=== PATIENT | female | born 1940 | race Caucasian/White ===

== ENCOUNTER 2017-05-06 14:28 | Outpatient (CLI) | payer MEDICARE, OTHER ==
--- NOTE | 2017-05-06 16:44 | MRI Preliminary Report ---
Exam: MRI BRAIN W/O Impressions: 1. No acute or subacute ischemic change. 2. Mild to moderate generalized cortical atrophy with only trivial white matter disease as described of indeterminate significance. There is mild midbrain atrophy. 3. Otic capsule contents, cisternal segments of the major cranial nerves are unremarkable as describe dFinn [facility] SITE ID: [id number]
--- NOTE | 2017-05-06 16:47 | MRI Report ---
EXAM: MRI BRAIN AND INTERNAL AUDITORY CANAL (IAC) EXAM DATE: 05/06/2017 03:59 PM. CLINICAL HISTORY: VERTIGO, ESSENTIAL HYPERTENSION. COMPARISON: None. TECHNIQUE: Multiplanar, multisequence T1-weighted and fluid-sensitive MRI sequences of the brain and IACs were performed. Other: None. IV Contrast: None. Findings: Relevant images are indicated (image number, series number). There is no acute or subacute ischemic change in the brain. There is no significant hemosiderin depos ition present in the brain. There is no hemorrhage, mass or midline shift. Basal cisterns, bilateral IACs, bilateral Meckel's cav es are clear. Orbital contents negative, patient status post bilateral lens surgery. Punctate old str todd present right thalamus, potentially left posterior thalamus. There is mild to moderate generalize d cortical atrophy, mild compensatory ventricular enlargement. There is trivial right superior fronta l gyrus subcortical white matter disease. Cisternal segments of the major cranial nerves are unremarkable. Bilateral otic capsule contents incl uding cochlea, vestibule, semicircular canals are unremarkable. There is empty sella. Midbrain demonstrates mild atrophy. Craniocervical junction, limited evaluation upper cervical cord negative although there is partial visualization of upper cervical spine spondyl osis. Impressions: 1. No acute or subacute ischemic change. 2. Mild to moderate generalized cortical atrophy with only trivial white matter disease as described of indeterminate significance. There is mild midbrain atrophy. 3. Otic capsule contents, cisternal segments of the major cranial nerves are unremarkable as describe d. [facility] Referring Provider Line: [phone] SITE ID: [id number]
== END 2017-05-06 14:29 | disposition home or self-care (01) ==
LOC: DI 14:28
PROVIDERS: ATTEND Family Medicine
DX: G31.9 Degenerative disease of nervous system, unspecified (principal)
CPT/HCPCS: 70551

== ENCOUNTER 2017-05-20 11:45 | Outpatient (CLI) | payer MEDICARE, OTHER ==
--- NOTE | 2017-05-23 16:03 | Mammography Report ---
DIGITAL SCREENING MAMMOGRAM: 05/20/2017 CLINICAL INDICATION: A 76-year-old, for screening. COMPARISON: 04/2016, 03/2015, 06/2008, 05/2007. TECHNIQUE: Routine CC and MLO projections were obtained of the breasts. FINDINGS: The breasts demonstrate fatty replacement bilaterally. Intramammary lymph nodes are stable . Coarse and punctate, typically benign calcifications are present. No suspicious masses, clustered m icrocalcifications, or regions of architectural distortion are identified. IMPRESSION: BENIGN FINDINGS. RECOMMENDATION: ROUTINE ANNUAL SCREENING UNLESS OTHERWISE CLINICALLY INDICATED. BIRADS CATEGORY 2-BENIGN FINDINGS. STANDARD QUALIFYING STATEMENTS 1. This examination was reviewed with the aid of Computer-Aided Detection (CAD). 2. A negative or benign imaging report should not delay biopsy if clinically suspicious findings are present. Consider surgical consultation if warranted. More than 5% of cancers are not identified by i maging. 3. Dense breasts may obscure an underlying neoplasm. JOB #: [id number] EXT JOB #:[id number]
== END 2017-05-20 11:46 | disposition home or self-care (01) ==
LOC: DI.N 11:45
PROVIDERS: ATTEND Family Medicine
DX: Z12.31 Encounter for screening mammogram for malignant neoplasm of breast (principal)
CPT/HCPCS: 77067

== ENCOUNTER 2018-01-17 11:37 | Outpatient (CLI) | payer MEDICARE, OTHER ==
[2018-01-17 19:13] LABS: HB2 TOTAL 16.1 g/dL; HEMOGLOBIN A1C 0.58 g/dL; HEMOGLOBIN A1C % 5.4 % (4.6-6.2)
[2018-01-17 19:27] LABS: THYROID STIMULATING HORMONE 1.99 uIU/mL (0.34-5.60)
[2018-01-19 15:17] LABS: ALBUMIN 3.9 g/dL (3.8-4.8); ALPHA 1 GLOBULIN 0.3 g/dL (0.2-0.3); ALPHA 2 GLOBULIN 0.7 g/dL (0.5-0.9); BETA 1 GLOBULIN 0.4 g/dL (0.4-0.6); BETA 2 GLOBULIN 0.2 g/dL (0.2-0.5)
== END 2018-01-17 11:38 | disposition home or self-care (01) ==
LOC: LAB.WCP 11:37
PROVIDERS: ATTEND Family Medicine
DX: R73.01 Impaired fasting glucose (principal); R20.9 Unspecified disturbances of skin sensation
CPT/HCPCS: 36415; 82607; 83036; 84155; 84165; 84443; 86140

== ENCOUNTER 2018-01-31 15:25 | Outpatient (CLI) | payer MEDICARE, OTHER ==
--- NOTE | 2018-02-01 14:49 | MRI Report ---
Procedure Date: 01/31/2018 Accession Number: [id number] / [id number] Procedure: MRI - Lumbar Spine W/O CPT Code: FULL RESULT: EXAM: MRI LUMBAR SPINE WITHOUT CONTRAST EXAM DATE: 01/31/2018 04:20 PM. CLINICAL HISTORY: Left lower extremity paresthesias, radiculopathy. COMPARISON: Prior plain film lumbar spine 02/25/2016. TECHNIQUE: Multiplanar, multisequence T1-weighted and fluid-sensitive sequences of the lumbar spine from T12 to S1 without contrast. Other: None. Findings: Relevant images are indicated (image number, series number). There are 5 qto-qtt-qfkoail lumbar vertebra. Conus terminates at the L1-L2 level. There is no abnormal lumbar cord signal. There are no suspicious marrow lesions. Advanced multilevel lower thoracic, lumbar spine spondylosis present. There is no lumbar paraspinal mass or collection. Marked posterior facet multilevel bony hypertrophic changes are present. Mild degenerative changes bilateral sacroiliac joints. Partly visualized bilateral kidneys demonstrate no obstructive uropathy. 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 Partly seen T9-T10 through T10-T11 demonstrates mild/moderate disk desiccation only. T11-T12: Moderate/marked degenerative change, prominent posterior broad-based disk protrusion, mild canal stenosis with minimal bilateral neural foramina narrowing. T12-L1: Marked disk degenerative change, small posterior broad-based disk osteophyte complex, slight grade 1 retrolisthesis. No significant canal stenosis. Moderate bilateral neural foramina narrowing. L1-L2: Marked disk degenerative change him a right posterior paracentral small disk extrusion extends below the superior endplate of L2. No significant canal stenosis. Moderate/marked posterior facet degenerative changes with [id number] bilateral neural foramina narrowing right than left. L2-L3: Marked disk degenerative change, moderate Modic type I endplate change. Posterior broad-based disk osteophyte extrusion, marked/severe canal stenosis. Marked posterior facet degenerative changes with moderate left, marked right neural foramina narrowing with likely contact right L2, bilateral traversing L3 nerve roots. L3-L4: Marked disk degenerative change, grade 1 anterolisthesis, posterior broad-based disk osteophyte extrusion, severe canal stenosis, marked posterior facet degenerative change with marked left, moderate to marked right neural foramina narrowing likely contact bilateral L3 and traversing bilateral L4 nerve roots. L4-L5: Moderate/marked disk degenerative change, moderate Modic type I endplate change. L5 right superior endplate Schmorl's node present with surrounding edema consistent with focal microfracturing. There is marked canal stenosis. There is moderate to marked bilateral neural foramina narrowing right greater than left. There is likely contact right L4 nerve root. L5-S1: Moderate/marked disk degenerative change, no canal stenosis. Moderate/marked posterior facet degenerative change with moderate to marked bilateral neural foraminal narrowing right slightly greater than left. Potential contact bilateral L5 nerve roots. Trace Modic type I endplate change. Remaining upper sacral canal negative with few scattered Tarlov cysts present. Impressions: 1. Advanced multilevel lower thoracic, lumbar spine spondylosis, 5 [id number]-kid-spycxmu lumbar vertebra are present. No abnormal lumbar cord signal or suspicious marrow lesion. Pertinent degenerative levels below. 2. L2-L3: Moderate Modic type I endplate change likely locally symptomatic. Marked/severe canal stenosis, moderate to marked degenerative bilateral neural foramina narrowing may contribute a right L2, bilateral traversing L3 radiculopathy. 3. L3-L4: Severe degenerative canal stenosis. Moderate/marked degenerative lateral neural foramina narrowing may contribute a bilateral L3, traversing bilateral L4 radiculopathy. 4. L4-L5: Moderate Modic type I endplate change likely locally symptomatic. Marked degenerative canal stenosis. Moderate to marked degenerative bilateral neural foramina narrowing may contribute a right L4 radiculopathy. Likely L5 right superior endplate microfracturing present consistent with active Schmorl's node development. 5. L5-S1: Moderate to marked degenerative bilateral neural foramina narrowing may contribute a bilateral L5 radiculopathy. Trace Modic type I endplate change. 6. Milder or no significant degenerative changes of the remaining lower thoracic, lumbar spine levels as detailed. Comment: The following findings are so common in adults without low back pain that while we report their presence, they must be interpreted with caution and in the context of the clinical situation. (Reference Rebecca et al, Spine 2001) Prevalence of findings in patients without low back pain: Disk degeneration (any evidence): 92% Disk desiccation/T2 signal loss: 83% Disk height loss: 56% Disk bulge: 64% Disk protrusion: 32% Annular tear/high intensity zone: 38% [facility]
== END 2018-01-31 15:26 | disposition home or self-care (01) ==
LOC: DI 15:25
PROVIDERS: ATTEND Family Medicine
DX: M54.16 Radiculopathy, lumbar region (principal); R20.2 Paresthesia of skin; M47.896 Other spondylosis, lumbar region
CPT/HCPCS: 72148

== ENCOUNTER 2018-05-22 11:50 | Outpatient (CLI) | payer MEDICARE, OTHER ==
--- NOTE | 2018-05-23 09:05 | Mammography Report ---
Reason: SCREENING MAMMO Procedure Date: 05/22/2018 Accession Number: [id number] / [id number] Procedure: MGN - Screening Mammo Dig Bilat CPT Code: FULL RESULT: EXAM: Screening Mammo Dig Bilat DATE: 05/22/2018 12:08 PM CLINICAL HISTORY: 77-year-old female with history of early menses for screening mammogram. TECHNIQUE: Bilateral CC and MLO views were obtained. COMPARISON: 05/20/2017, 05/18/2016, 04/01/2015, 07/03/2008. FINDINGS: The breasts demonstrate scattered fibroglandular densities bilaterally. Coarse typically benign calcifications are again seen bilaterally. No suspicious masses, clustered microcalcifications, or regions of architectural distortion are identified. IMPRESSION: Benign findings RECOMMENDATION: Routine annual screening unless otherwise clinically indicated. BIRADS CATEGORY 2: Benign findings STANDARD QUALIFYING STATEMENTS: 1. This examination was reviewed with the aid of Computer-Aided Detection (CAD). 2. A negative or benign imaging report should not delay biopsy if clinically suspicious findings are present. Consider surgical consultation if warrented. More than 5% of cancers are not identified by imaging. 3. Dense breasts may obscure an underlying neoplasm. 4. This examination was reviewed without the aid of 3D breast imaging (tomosynthesis).
== END 2018-05-22 11:51 | disposition home or self-care (01) ==
LOC: DI.N 11:50
DX: Z12.31 Encounter for screening mammogram for malignant neoplasm of breast (principal)
CPT/HCPCS: 77067

== ENCOUNTER 2018-11-22 08:00 | Outpatient (CLI) | payer MEDICARE, OTHER ==
[2018-11-22 12:50] LABS: BASOPHILS # (AUTO) 0.1 10^3/uL (0.0-0.1); BASOPHILS % (AUTO) 1.5 %; EOSINOPHILS # (AUTO) 0.4 10^3/uL (0.0-0.7); EOSINOPHILS % (AUTO) 6.3 %; HGB - HEMOGLOBIN 13.6 g/dL (12.0-16.0); LYMPHOCYTES # (AUTO) 0.6 10^3/uL (1.5-3.5); LYMPHOCYTES % (AUTO) 8.4 %; MEAN CORPUSCULAR HEMOGLOBIN 30.3 pg (27.0-31.0); MEAN CORPUSCULAR HGB CONC 33.7 g/dL (32.0-36.0); MEAN CORPUSCULAR VOLUME 89.7 fL (81.0-99.0); MEAN PLATELET VOLUME 6.6 fL (7.9-10.8); MONOCYTES # (AUTO) 0.5 10^3/uL (0.0-1.0); NEUTROPHILS # (AUTO) 5.1 10^3/uL (1.5-6.6); NEUTROPHILS % (AUTO) 75.8 %; PLT - PLATELET COUNT 299 10^3/uL (130-450); RED BLOOD COUNT 4.51 10^6/uL (4.20-5.40); RED CELL DISTRIBUTION WIDTH 13.6 % (12.0-15.0); WHITE BLOOD COUNT 6.7 x10^3/uL (4.8-10.8)
[2018-11-22 14:55] LABS: HB2 TOTAL 14.4 g/dL; HEMOGLOBIN A1C 0.52 g/dL; HEMOGLOBIN A1C % 5.5 % (4.6-6.2)
[2018-11-22 15:06] LABS: ALBUMIN 3.5 g/dL (3.2-5.5); ALBUMIN/GLOBULIN RATIO 1.1 (1.0-2.2); ALKALINE PHOSPHATASE 54 IU/L (42-121); ALT ALANINE AMINOTRANSFERASE 16 IU/L (10-60); AST ASPARTATE AMINOTRANSFERASE 19 IU/L (10-42); BUN - BLOOD UREA NITROGEN 19 mg/dL (6-20); CALCIUM 8.9 mg/dL (8.5-10.3); CARBON DIOXIDE - CO2 28 mmol/L (21-32); CHLORIDE 97 mmol/L (101-111); CHOL/HDL RATIO 2.7 (<4.4); CHOLESTEROL 141 mg/dL; CREATININE 0.7 mg/dL (0.4-1.0); GFR - MDRD 81 (>89); GLUCOSE 105 mg/dL (70-100); HDL CHOLESTEROL 52 mg/dL; LDL CHOLESTEROL,CALCULATED 77 mg/dL; LDL/HDL RATIO 1.5 (<4.4); SODIUM 138 mmol/L (135-145); TOTAL PROTEIN 6.7 g/dL (6.7-8.2); VLDL CHOLESTEROL 12 mg/dL
== END 2018-11-22 23:59 | disposition home or self-care (01) ==
LOC: LAB.N 08:00
PROVIDERS: ATTEND Family Medicine
DX: I10 Essential (primary) hypertension (principal); R73.9 Hyperglycemia, unspecified; E78.5 Hyperlipidemia, unspecified
CPT/HCPCS: 36415; 80053; 80061; 83036; 83721; 84443; 85025

== ENCOUNTER 2019-02-26 12:48 | Outpatient (CLI) | payer MEDICARE, OTHER ==
--- NOTE | 2019-02-26 15:00 | CT Report ---
Reason: ANOSMIA, CHRONIC SINUSITIS Procedure Date: 02/26/2019 Accession Number: [id number] / [id number] Procedure: CT - Sinuses CPT Code: FULL RESULT: EXAM: CT SINUS EXAM DATE: 02/26/2019 12:59 PM. HISTORY: Anosmia, chronic sinusitis. COMPARISONS: None. TECHNIQUE: Routine multi-axial CT imaging performed through the sinuses. Iodinated IV contrast: None. Reconstructions: Multiplanar reformats. In accordance with CT protocol optimization, one or more of the following dose reduction techniques were utilized for this exam: automated exposure control, adjustment of mA and/or KV based on patient size, or use of iterative reconstructive technique. FINDINGS: RIGHT Frontal: Normal. Ethmoid: Normal. Maxillary: Normal. Sphenoid: Normal. Drainage Pathways: The frontal recess, ostiomeatal complex and sphenoethmoidal recess are patent and normal. LEFT Frontal: Normal. Ethmoid: Normal. Maxillary: Normal. Sphenoid: Normal. Drainage Pathways: The frontal recess, ostiomeatal complex and sphenoethmoidal recess are patent and normal. Nasal Cavity: Normal. No mass or significant anatomic abnormality evident. Osseous Structures: Unremarkable. Moderate degenerative change is seen in the TMJ bilaterally. Orbits: Unremarkable. Other: Partial opacification is seen scattered throughout the inferior left mastoid air cells. The partially visualized nasopharynx and infratemporal fossa are unremarkable. IMPRESSION: 1. Normal sinus CT. No sinusitis. 2. Note is made of partial opacification involving inferior left mastoid air cells. [facility]
== END 2019-02-26 12:49 | disposition home or self-care (01) ==
LOC: DI 12:48
PROVIDERS: ATTEND Family Medicine
DX: J32.9 Chronic sinusitis, unspecified (principal); R43.0 Anosmia
CPT/HCPCS: 70486

== ENCOUNTER 2019-06-07 10:44 | Outpatient (CLI) | payer MEDICARE, OTHER ==
--- NOTE | 2019-06-08 11:43 | Mammography Report ---
Reason: ROUTINE MAMMO Procedure Date: 06/07/2019 Accession Number: [id number] / [id number] Procedure: ENA - Screening Mammo w/Paul CPT Code: Final Report FULL RESULT: EXAM: Screening Mammo w/Paul DATE: 06/07/2019 11:11 AM CLINICAL HISTORY: Routine screening. No reported personal or family history of breast cancer. TECHNIQUE: (B) - Bilateral CC and MLO views were obtained. COMPARISON: 05/22/2018 through 04/01/2015. PARENCHYMAL PATTERN: (F) - The breasts demonstrate diffuse fatty replacement bilaterally. FINDINGS: Bilateral breasts: There are no suspicious masses, calcifications, or areas of distortion. IMPRESSION: Negative examination. BI-RADS category 1. RECOMMENDATION: (ANNUAL) - Recommend routine annual screening mammography. BI-RADS CATEGORY: STANDARD QUALIFYING STATEMENTS: 1. This examination was not reviewed with the aid of Computer-Aided Detection (CAD). 2. A negative or benign imaging report should not preclude biopsy if clinically suspicious findings are present. 3. Dense breasts may obscure an underlying neoplasm. 4. This examination was reviewed with the aid of 3D breast imaging (tomosynthesis).
== END 2019-06-07 10:45 | disposition home or self-care (01) ==
LOC: DI 10:44
DX: Z12.31 Encounter for screening mammogram for malignant neoplasm of breast (principal)
CPT/HCPCS: 77063; 77067

== ENCOUNTER 2019-12-31 09:21 | Outpatient (CLI) | payer MEDICARE, OTHER ==
[2019-12-31 12:12] LABS: BASOPHILS # (AUTO) 0.1 10^3/uL (0.0-0.1); BASOPHILS % (AUTO) 0.9 %; EOSINOPHILS # (AUTO) 0.3 10^3/uL (0.0-0.7); EOSINOPHILS % (AUTO) 3.4 %; HGB - HEMOGLOBIN 14.4 g/dL (12.0-16.0); LYMPHOCYTES # (AUTO) 0.8 10^3/uL (1.5-3.5); LYMPHOCYTES % (AUTO) 8.8 %; MEAN CORPUSCULAR HEMOGLOBIN 31.2 pg (27.0-31.0); MEAN CORPUSCULAR HGB CONC 34.6 g/dL (32.0-36.0); MEAN CORPUSCULAR VOLUME 90.2 fL (81.0-99.0); MEAN PLATELET VOLUME 8.8 fL (7.9-10.8); MONOCYTES # (AUTO) 0.7 10^3/uL (0.0-1.0); NEUTROPHILS # (AUTO) 7.2 10^3/uL (1.5-6.6); PLT - PLATELET COUNT 240 10^3/uL (130-450); RED BLOOD COUNT 4.61 10^6/uL (4.20-5.40); RED CELL DISTRIBUTION WIDTH 13.2 % (12.0-15.0); WHITE BLOOD COUNT 9.2 x10^3/uL (4.8-10.8)
[2019-12-31 12:38] LABS: ALBUMIN/GLOBULIN RATIO 1.2 (1.0-2.2); ALKALINE PHOSPHATASE 46 IU/L (42-121); ALT ALANINE AMINOTRANSFERASE 16 IU/L (10-60); AST ASPARTATE AMINOTRANSFERASE 19 IU/L (10-42); BILIRUBIN,TOTAL 1.3 mg/dL (0.2-1.0); BUN - BLOOD UREA NITROGEN 14 mg/dL (6-20); CALCIUM 9.1 mg/dL (8.5-10.3); CARBON DIOXIDE - CO2 28 mmol/L (21-32); CHLORIDE 96 mmol/L (101-111); CHOL/HDL RATIO 2.1 (<4.4); CHOLESTEROL 137 mg/dL; CREATININE 0.7 mg/dL (0.4-1.0); GLUCOSE 94 mg/dL (70-100); HDL CHOLESTEROL 65 mg/dL; LDL CHOLESTEROL,CALCULATED 60 mg/dL; LDL/HDL RATIO 0.9 (<4.4); SODIUM 134 mmol/L (135-145); TOTAL PROTEIN 7.4 g/dL (6.7-8.2); VLDL CHOLESTEROL 12 mg/dL
[2019-12-31 12:46] LABS: HB2 TOTAL 15.1 g/dL; HEMOGLOBIN A1C 0.54 g/dL; HEMOGLOBIN A1C % 5.4 % (4.6-6.2)
== END 2019-12-31 23:59 | disposition home or self-care (01) ==
LOC: LAB.WCP 09:21
PROVIDERS: ATTEND Family Medicine
DX: R73.01 Impaired fasting glucose (principal); I10 Essential (primary) hypertension
CPT/HCPCS: 36415; 80053; 80061; 83036; 83721; 85025

== ENCOUNTER 2020-12-04 10:26 | Outpatient (CLI) | payer MEDICARE, OTHER ==
--- NOTE | 2020-12-04 11:30 | XRAY Report ---
PROCEDURE: Hand 3 View RT INDICATIONS: HAND JOINT PAIN, RIGHT TECHNIQUE: 3 views of the hand(s) acquired. COMPARISON: None FINDINGS: Bones: No fractures or dislocations. No suspicious bony lesions. Joint space narrowing and periart icular osteophyte formation at the scaphotrapezial, first carpometacarpal joint, first, second, and t hird metacarpophalangeal joints, as well as the interphalangeal joints of the digits, indicating oste oarthritis. This is worst in degree at the first carpal metacarpal joint. Soft tissues: No suspicious soft tissue calcifications. IMPRESSION: Multifocal osteoarthritis. No acute fracture. No osseous lesion. If symptoms and/or clinical suspicio n for pathology continue, further assessment with repeat plain films, or advanced imaging (e.g., CT, MRI, or bone scan) is recommended for further assessment. Reviewed by: Madi Kaur MD on 12/04/2020 11:29 AM PDT Approved by: Madi Kaur MD on 12/04/2020 11:29 AM PDT Station ID: [id number]
== END 2020-12-04 23:59 | disposition home or self-care (01) ==
LOC: DI.N 10:26
PROVIDERS: ATTEND Family Medicine
DX: M19.041 Primary osteoarthritis, right hand (principal); M18.11 Unilateral primary osteoarthritis of first carpometacarpal joint, right hand

== ENCOUNTER 2022-06-16 08:00 | Outpatient (CLI) | payer MEDICARE, OTHER ==
[2022-06-16 22:01] LABS: BACTERIAL VAGINOSIS DNA NEGATIVE (NEGATIVE); CANDIDA GLABRATA DNA NEGATIVE (NEGATIVE); CANDIDA GROUP DNA POSITIVE (NEGATIVE); CANDIDA KRUSEI DNA NEGATIVE (NEGATIVE); TRICHOMONAS VAGINALIS DNA NEGATIVE (NEGATIVE)
== END 2022-06-16 23:59 | disposition home or self-care (01) ==
LOC: LAB 08:00
PROVIDERS: ATTEND Physician Assistant
DX: N89.8 Other specified noninflammatory disorders of vagina (principal)
CPT/HCPCS: 81514

== ENCOUNTER 2023-10-16 17:53 | Outpatient (CLI) | payer MEDICARE | END 2023-10-16 23:59 | disposition critical access hospital (66) | LOC: EMS 17:53 | DX: S01.21XA Laceration without foreign body of nose, initial encounter (principal); S09.90XA Unspecified injury of head, initial encounter; W18.39XA Other fall on same level, initial encounter; Y93.89 Activity, other specified; Y92.000 Kitchen of unspecified non-institutional (private) residence as the place of occurrence of the external cause | CPT/HCPCS: A0425; A0429 ==

== ENCOUNTER 2023-10-16 18:05 | Emergency (ER) | payer MEDICARE ==
--- NOTE | 2023-10-16 18:55 | CT Report ---
PROCEDURE: Head WO INDICATIONS: fall, pain TECHNIQUE: Noncontrast 4.5 mm thick angled axial sections acquired from the foramen magnum to the vertex. For r adiation dose reduction, the following was used: automated exposure control, adjustment of mA and/or kV according to patient size. COMPARISON: 03/27/2020 FINDINGS: Image quality: Diagnostic CSF spaces: Basal cisterns are patent. Lateral ventricles are symmetric. Volume: Vascular calcifications. Periventricular white matter disease is commonly seen with chronic m icroangiopathy. Volume loss is present. These findings are moderate. Brain: No intracranial hemorrhage. Ferrara-white differentiation is grossly maintained. Craniofacial structures: Facial structures are separately dictated. Scalp hematoma in the frontal reg ion. No displaced fracture. Partially empty sella. IMPRESSION: No acute intracranial abnormality. Forehead scalp hematoma. Facial findings are separately dictated. Reviewed by: Dar De Leon MD on 10/16/2023 6:54 PM PDT Approved by: Dar De Leon MD on 10/16/2023 6:54 PM PDT Station ID: [id number]
--- NOTE | 2023-10-16 18:58 | CT Report ---
PROCEDURE: Cervical Spine WO INDICATIONS: fall, pain TECHNIQUE: Noncontrast 3 mm thick sections acquired from the skull base to the T4 level. Sagittal and coronal r eformats were then constructed. For radiation dose reduction, the following was used: automated exp osure control, adjustment of mA and/or kV according to patient size. COMPARISON: None FINDINGS: Image quality: Diagnostic Bones: Moderate degenerative changes. Anterolisthesis of C3 on C4, C4 on C5, and retrolisthesis of C5 on C6, likely degenerative. Trace anterolisthesis also seen of C7 on T1. There is slight reversal of the normal cervical lordosis. No acute vertebral body height loss. Soft tissues: No pathologic prevertebral soft tissue swelling. Partially seen emphysema at the lung a pices. 1.6 cm right thyroid nodule. Consider nonemergent sonographic follow-up. Subcutaneous lesion i n the left anterior lower neck, correlate with clinical clinical exam (series 2 image 49). IMPRESSION: Degenerative changes without acute fracture or traumatic subluxation. If there is high concern for fu rther derangement, consider MRI evaluation. Reviewed by: Dar De Leon MD on 10/16/2023 6:57 PM PDT Approved by: Dar De Leon MD on 10/16/2023 6:57 PM PDT Station ID: [id number]
[2023-10-16] MEDS: BUFFERED LIDOCAINE 10 ML SYRINGE SUBQ STA (19:00)
--- NOTE | 2023-10-16 19:02 | CT Report ---
PROCEDURE: Maxillofacial WO INDICATIONS: fall, pain TECHNIQUE: Noncontrast 1.5 mm thick axial images acquired from the mandible through the frontal sinuses, with co asuncion and sagittal reformatting. For radiation dose reduction, the following was used: automated ex posure control, adjustment of mA and/or kV according to patient size. 3-dimensional reconstructions w ere obtained. COMPARISON: 03/27/[address] FINDINGS: Image quality: Diagnostic Bones: No displaced fracture. Orbital webster are intact. Mandible is intact. Zygomatic arches and pter ygoid plates are intact. No skull base fracture. Sequela of dental disease. TMJ arthrosis. Possible n ondisplaced nasal fracture. Sinuses and mastoids: No significant opacification. Soft tissues: Partially seen forehead hematoma. The globes appear intact. Suspected soft tissue injur y over the bridge of the nose Brain: Separately dictated IMPRESSION: Suspected soft tissue injury over the nose, as well as forehead hematoma. Possible nondisplaced nasa l bone fracture versus old injury. No displaced fracture is seen elsewhere. Other findings as above. Reviewed by: Dra De Leon MD on 10/16/2023 7:01 PM PDT Approved by: Dar De Leon MD on 10/16/2023 7:01 PM PDT Station ID: [id number]
--- NOTE | 2023-10-16 19:54 | ED Physician Documentation ---
History of Present Illness - Stated complaint Stated Complaint: GLF - Chief complaint Chief Complaint: Laceration - History obtained from History obtained from: Patient, EMS - History of Present Illness Timing: Today Pain level max: 3 Pain level now: 3 - Additonal information Additional information: 83-year-old female states that she tripped and fell at home today landing on the ground, causing a hematoma to the forehead and a laceration to her nose. She states that she is not on any blood thinners. Tetanus is up-to-date. No loss of consciousness. Denies any injury to her shoulders, elbows, hips, knees. Brought in by EMS from home. Review of Systems Constitutional: denies: Fever, Chills GI: denies: Vomiting Musculoskeletal: denies: Neck pain, Back pain Neurologic: denies: Focal weakness, Numbness, Seizure, Confused PD PAST MEDICAL HISTORY - Past Medical History Past Medical History: Yes Cardiovascular: Hypertension, [place] Respiratory: Emphysema Neuro: Other Endocrine/Autoimmune: None GI: Chronic diarrhea : None HEENT: Chronic sinusitis Psych: Depression Musculoskeletal: Osteoarthritis, Chronic back pain Other Past Medical History: subdural hematoma - Past Surgical History Past Surgical History: Yes General: Cholecystectomy, EGD Neuro: Craniotomy - Present Medications Home Medications: Ambulatory Orders Medication Instructions Recorded Confirmed Candesartan Cilexetil 1 tab PO DAILY 10/16/23 10/16/23 Fluticasone Propionate 110 mcg INH DAILY 10/16/23 10/16/23 [Fluticasone Propionate Hfa] Tiotropium [place] [Spiriva] 1 puffs INH DAILY 10/16/23 10/16/23 amLODIPine [Norvasc] 2.5 mg PO DAILY 10/16/23 10/16/23 bisoproloL fumarate [Bisoprolol 5 mg PO DAILY 10/16/23 10/16/23 Fumarate] cephALEXin [Keflex] 500 mg PO Q6H #28 cap 10/16/23 estradioL vaginal [Estrace vaginal] 2 gm VG QPM 10/16/23 10/16/23 - Allergies Allergies/Adverse Reactions: Allergies Allergy/AdvReac Type Severity Reaction Status Date / Time codeine AdvReac Unknown Verified 10/16/23 18:15 phenobarbital AdvReac Unknown Verified 10/16/23 18:15 - Social History Does the pt smoke?: No Smoking Status: Never smoker Does the pt drink ETOH?: No Does the pt have substance abuse?: No - Immunizations Immunizations are current?: Yes - POLST Patient has POLST: No PD ED PE NORMAL - Vitals Vital signs reviewed: Yes - General General: Alert and oriented X 3, No acute distress - HEENT HEENT: PERRL, EOMI, Moist mucous membranes, Other (frontal hematoma, no palpable skull fractures. large laceration to the nose, inverted V shaped) - Neck Neck: Supple, no meningeal sign, No bony TTP - Cardiac Cardiac: RRR, Strong equal pulses - Respiratory Respiratory: No respiratory distress, Clear bilaterally - Abdomen Abdomen: Soft, Non tender, Non distended - Back Back: No CVA TTP, No spinal TTP - Derm Derm: Warm and dry - Extremities Extremities: No edema - Neuro Neuro: Alert and oriented X 3, huller operator 2-12 intact, No motor deficit, No sensory deficit, Normal speech - Psych Psych: Normal mood, Normal affect Results - Vitals Vitals: Vital Signs - 24 hr 10/16/23 10/16/23 10/16/23 18:08 19:22 20:02 Temperature 36.6 C 36.5 C 36.5 C Heart Rate 59 L 62 60 Respiratory 20 18 14 Rate Blood Pressure 156/58 H 160/77 H 168/56 H O2 Saturation 96 99 100 10/16/23 20:11 Temperature 36.9 C Heart Rate 60 Respiratory 14 Rate Blood Pressure 168/56 H O2 Saturation 100 Oxygen O2 Source Room air - Rads (name of study) head CT Relevant Findings:: Final report received, See rad report maxillofacial CT Relevant Findings:: Final report received, See rad report cervical spine Ct Relevant Findings:: Final report received, See rad report Procedures - Laceration (location) nasal Length in cm: 6 Wound type: Linear (inverted V shaped) Neurovascular status: Sensory intact, Motor intact, Vascular intact Anesthesia: Lidocaine 1%, With bicarb Wound preparation: Irrigated copiously NS, Wound explored, To the base Skin layer closure: Nylon, Interrupted, Size #-0 - enter number (5) Other: Patient tolerated well, No complications, Neurovascular intact, Dressing applied, Tetanus UTD PD Medical Decision Making - ED course Complexity details: reviewed results, re-evaluated patient, considered differential, d/w patient ED course: 83-year-old female status post ground-level fall today. Large laceration to the nose. This was repaired. Does not go inside the nose but did split the skin in a large V shape. No acute abnormalities on CT scan of the head, maxillofacial or cervical spine. Given the location and depth of the nasal laceration, will place on Keflex as well. Tetanus up-to-date. No other acute injuries. Ambulating without difficulty. Full range of motion of all major joints. Warnings of infection and instructions on wound care given at bedside. Also counseled on how to minimize scarring. Patient counseled regarding signs and symptoms for which I believe and urgent re-evaluation would be necessary. Patient with good understanding of and agreement to plan and is comfortable going home at this time This document was made in part using voice recognition software. While efforts are made to proofread this document, sound alike and grammatical errors may occur. Departure - Departure Disposition: Home, Self Care Clinical Impression: Fall Qualifiers: Encounter type: initial encounter Qualified Code(s): W19.XXXA - Unspecified fall, initial encounter Facial laceration Qualifiers: Encounter type: initial encounter Qualified Code(s): S01.81XA - Laceration without foreign body of other part of head, initial encounter Condition: Good Instructions: ED Head Injury Closed, ED Laceration Facial Sutr Tape Follow-Up: your,doctor in 7-10 days for suture removal [Other] Prescriptions: cephALEXin [Keflex] 500 mg PO Q6H #28 cap Comments: Prescriptions were sent to [facility] in [place]. Please take all antibiotics until gone. Keep the wounds clean. Your sutures should be removed in approximately 7 to 10 days with your doctor. Please return if you worsen. Your head CT, maxillofacial CT and cervical spine CT do not show any acute abnormalities today that require any further intervention. Your tetanus shot is up-to-date. Forms: PCP List Discharge Date/Time: 10/16/23 20:20
[2023-10-16] MEDS: BACITRACIN ZINC OINT 1 PACKET TOP STA (19:55)
[2023-10-16] MEDS: cephALEXin 250 MG CAPSULE PO STA (20:01)
[2023-10-16 20:18] VITALS: BP 168/56; O2SAT 100
== END 2023-10-16 20:20 | disposition home or self-care (01) ==
LOC: EDUNIT# → EDBD → ED 18:05
DX: S09.90XA Unspecified injury of head, initial encounter (principal); S01.21XA Laceration without foreign body of nose, initial encounter; W01.0XXA Fall on same level from slipping, tripping and stumbling without subsequent striking against object, initial encounter; Y92.009 Unspecified place in unspecified non-institutional (private) residence as the place of occurrence of the external cause; I10 Essential (primary) hypertension
CPT/HCPCS: 12014; 70450; 70486; 72125; 99284; A9270

== ENCOUNTER 2023-12-01 12:14 | Outpatient (CLI) | payer MEDICARE | END 2023-12-01 23:59 | disposition short-term general hospital (02) | LOC: EMS 12:14 | DX: M25.552 Pain in left hip (principal); M25.562 Pain in left knee; R41.82 Altered mental status, unspecified; W19.XXXA Unspecified fall, initial encounter; Y92.003 Bedroom of unspecified non-institutional (private) residence as the place of occurrence of the external cause | CPT/HCPCS: A0425; A0427 ==